=== PATIENT | female | born 1940 | race Caucasian/White ===

== ENCOUNTER 2022-08-02 03:42 | Emergency (ER) | payer MEDICARE, SELFPAY ==
--- NOTE | ~2022-08-02 | XR_ITS ---
AP view of the pelvis and AP and lateral views of the right hip Clinical history: Pain Findings: There are fractures versus lytic destructive lesions of the bilateral inferior pubic rami/i schial tuberosities. No definite femoral neck fracture identified. Lumbar spine fixation hardware not ed. Bilateral hip and SI joint spaces are preserved. Soft tissues are unremarkable.. Medical electron ic device present. Impression: Fractures versus lytic destructive lesions of the bilateral inferior pubic rami/ischial tuberosities. Erosion somewhat limited due to relative underpenetration of these regions. Cross-sectional imaging is advised to better evaluate morphology of the osseous abnormalities (likely CT scan, as MR is presu mably contraindicated related to the battery pack/electronic device present at the left lower quadran t). Reviewed, dictated and finalized at location [employer] Impression: Fractures versus lytic destructive lesions of the bilateral inferior pubic rami /ischial tuberosities. Erosion somewhat limited due to relative underpenetratio n of these regions. Cross-sectional imaging is advised to better evaluate morph ology of the osseous abnormalities (likely CT scan, as MR is presumably contrai ndicated related to the battery pack/electronic device present at the left lowe r quadrant).
--- NOTE | ~2022-08-02 | CT_ITS ---
Non-contrast CT scan of the Pelvis Clinical indication: Hip pain Technique: 2.5 mm axial scans were obtained through the pelvis without intravenous or oral contrast. Dose reduction technique was used on this scan by utilizing automated exposure control and iterative reconstruction technique. The dose-length product (DLP) was 452.64 mGy-cm. Findings: Visualized bowel loops are unremarkable. Urinary bladder unremarkable. Patient is post hyst erectomy. No pelvic mass seen. No ascites. No fracture or dislocation seen. No lytic/destructive lesion identified. Inferior pubic rami and isch ial tuberosities are intact. Lumbar spinal fixation hardware noted. Impression: No fracture or dislocation. No lytic/destructive lesion. Appearance of the inferior pubic rami/ischia l tuberosities on earlier radiographs was presumably related to underpenetration and possible relativ e osteopenia in these locations resulting in poor visualization of the relevant osseous structures. Reviewed, dictated and finalized at location . [employer]ER Impression: No fracture or dislocation. No lytic/destructive lesion. Appearance of the infe rior pubic rami/ischial tuberosities on earlier radiographs was presumably rela ulises to underpenetration and possible relative osteopenia in these locations res ulting in poor visualization of the relevant osseous structures.
[2022-08-02 03:58] VITALS: BP 132/60; PULSE 48; RESP 17; TEMP 37.1; O2SAT 99
[2022-08-02 04:02] VITALS: BP 132/60; PULSE 46; RESP 17; TEMP 37.1; O2SAT 99
--- NOTE | 2022-08-02 04:07 | ED.GENADULT ---
HPI - General Adult General Chief complaint: Extremity Problem,Nontraumatic <Chadwick Haines DO - Last Filed: 08/02/22 04:10> Stated complaint: HIP PAIN <Chadwick Haines DO - Last Filed: 08/02/22 04:10> Time Seen by Provider: 08/02/22 03:51 <Chadwick Haines DO - Last Filed: 08/02/22 04:10> Source: RN notes reviewed <Chadwick Haines DO - Last Filed: 08/02/22 04:10> History of Present Illness HPI narrative: Patient presents emergency room from home for right hip pain. Patient states right hip has hurt since dinner last night approximately 7 PM. The pain is located in the right lateral hip and does not radiate described as aching in nature and is tender to palpation. She denies falling or trauma states she does not walk at baseline. She was given tinazidine and ibuprofen this evening at 2030 with minimal relief patient is COVID-positive since July 26 <Chadwick Haines DO - Last Filed: 08/02/22 04:10> Related Data Allergies/adverse reactions: Allergies Allergy/AdvReac Type Severity Reaction Status Date / Time ciprofloxacin [From Cipro] Allergy Rash Verified 08/02/22 04:12 ezetimibe [From Zetia] Allergy Unknown Verified 08/02/22 04:13 naproxen Allergy Anaphylaxis Verified 08/02/22 04:13 [id number] Reductase Allergy Unknown Verified 08/02/22 04:13 Inhibitor <Chadwick Haines DO - Last Filed: 08/02/22 04:10> Review of Systems Review of Systems: Gen.: Denies fevers or chills ENT: Denies congestion Respiratory: Denies shortness of breath or cough CV: Denies chest pain GI: Denies abdominal pain nausea, emesis or diarrhea Musculoskeletal: See HPI Neuro: Denies numbness, tingling, weakness or focal weakness Skin: Denies rash Except as documented, all other systems reviewed and negative <Chadwick Haines DO - Last Filed: 08/02/22 04:10> PMFSH Past Medical History Medical History: Medical History (Updated 08/02/22 @ 07:46 by Davide Moreno MD) COVID-19 <Chadwick Haines DO - Last Filed: 08/02/22 04:10> Social History Social History: Social History (Updated 08/02/22 @ 04:09 by Chadwick Haines DO) Smoking status: Never smoker <Chadwick Haines DO - Last Filed: 08/02/22 04:10> Exam Narrative: APPEARANCE: No acute distress, nontoxic, resting in bed EYES: EOMI HEENT: Normocephalic, atraumatic, OMM RESPIRATORY: No respiratory distress Clear to auscultation bilaterally with no rhonchi wheezing or rales. CARDIOVASCULAR: Regular rate and rhythm without murmurs rubs or gallops. ABDOMINAL: Soft, nontender, nondistended, no rebound or guarding MUSCULOSKELETAl: Moves all extremities. Bilateral lower extremities held in flexion contracture the right hip is tender to palpation over the lateral aspect with no swelling or ecchymosis pain with movement of the hip, no tenderness of the right knee or ankle dorsalis pedis pulse 2+ neurovascular intact NEURO: Awake and alert. Following commands, speech normal, no focal deficits SKIN:: Warm, dry. No rashes lesions or abrasions PSYCHIATRIC: Normal affect/mood, <Chadwick Haines DO - Last Filed: 08/02/22 04:10> Course Course Emergency Course: Unremarkable imaging. Discharge back to skilled nursing. <Davide Moreno MD - Last Filed: 08/02/22 07:48> Vital Signs Vital signs: Vital Signs Temperature 98.7 F 08/02/22 03:58 Pulse Rate 48 L 08/02/22 03:58 Respiratory Rate 17 08/02/22 03:58 Blood Pressure 132/60 08/02/22 03:58 Pulse Oximetry 99 08/02/22 03:58 Oxygen Delivery Room Air 08/02/22 03:58 Temperature 98.7 F 08/02/22 04:02 Pulse Rate 46 L 08/02/22 04:02 Respiratory Rate 17 08/02/22 04:02 Blood Pressure 149/74 H 08/02/22 06:04 Pulse Oximetry 99 08/02/22 04:02 Oxygen Delivery Room Air 08/02/22 03:58 <Chadwick Haines DO - Last Filed: 08/02/22 04:10> Vital Signs Temperature 98.7 F 08/02/22 03:58 Pulse Rate 48 L
[2022-08-02] MEDS: HYDROcodone/acetaminophen (*CRX) 5-325 MG TABLET 1 TAB PO (05:03)
[2022-08-02 06:04] VITALS: BP 149/74
[2022-08-02 08:05] VITALS: BP 130/80; PULSE 49; RESP 16; O2SAT 97
[2022-08-02 10:00] VITALS: BP 127/79; PULSE 47; RESP 16; O2SAT 96
== END 2022-08-02 10:00 ==
PROVIDERS: Emergency Provider Emergency Medicine
DX: M25.551 Pain in right hip (principal); U07.1 COVID-19; R93.7 Abnormal findings on diagnostic imaging of other parts of musculoskeletal system
CPT/HCPCS: 72192; 73502; 99284; A9270